=== PATIENT | female | born 1950 | race Caucasian/White ===

== ENCOUNTER → 2020-04-28 | Outpatient (CLI) | payer MEDICARE, OTHER ==
--- NOTE | 2020-04-28 10:34 | RAD ---
LEFT LEG VENOUS DOPPLER STUDY: Clinical indications: Left leg swelling and pain. Findings: Duplex sonography (including strong scale evaluation and color flow and waveform spectral charlie lysis) of the proximal aspect of the greater saphenous vein and the proximal aspect of the profunda f emoral vein and the entire length of the common femoral and superficial femoral and popliteal veins a nd the tibioperoneal trunk and the proximal aspect of the posterior tibial and peroneal veins of the left leg was performed. Normal compressibility, augmentation of color Doppler flow after calf antonino cooper, and respiratory variation of Doppler flow is seen. Thus, there are no sonographic findings of d eep venous thrombosis within these veins. Impression: There are no sonographic findings of deep venous thrombosis within the veins discussed ab ove of the left lower extremity. There is a 5.6 cm complex popliteal cyst. Electronically signed by: Daren Fontenot MD (04/28/2020 10:31 AM) [id number]
== END ==
LOC: US 09:53
PROVIDERS: ATTEND Specialist
DX: M71.22 Synovial cyst of popliteal space [Baker], left knee (principal)
CPT/HCPCS: 93971

== ENCOUNTER → 2020-05-22 | Outpatient (CLI) | payer MEDICARE, OTHER ==
--- NOTE | 2020-05-22 17:18 | RAD ---
CT HEAD/BRAIN WO Date: 05/22/2020 5:08 PM Clinical Indication: Reason: CONCUSSION WITHOUT LOSS OF CONSCIOUSNESS, FALL YESTERDAY / Spl. Instruct ions: / History: Comparison: None. Technique: 5 mm axial tomographic images were obtained of the head without contrast. These were view ed on brain and bone windows. One or more of the following dose reduction techniques were utilized: A utomated exposure control (AEC), Adjustment of mA and/or kV according to patient size, Use of iterati ve reconstruction technique such as ASiR, CT scan done according to ALARA and image gently/image vazquez ly Findings: The brain parenchyma is normal in attenuation. No intra- or extra-axial mass or fluid collection. No acute hemorrhage. The ventricles are normal in size, shape, and morphology. The strong-white matter quan ction is normal. The subarachnoid cisterns are patent. The visualized paranasal sinuses are normal. The visualized portions of the orbits and globes are no rmal. The mastoid air cells are clear. The sports marketing internship topogram shows no lytic lesion or fracture. Impression: No acute intracranial process. Electronically signed by: Rodger Carrillo MD (05/22/2020 5:16 PM) [id number]
== END ==
LOC: CT 16:47
PROVIDERS: ATTEND Specialist
DX: S06.0X0A Concussion without loss of consciousness, initial encounter (principal); X58.XXXA Exposure to other specified factors, initial encounter; Y93.89 Activity, other specified; Y92.89 Other specified places as the place of occurrence of the external cause; Y99.8 Other external cause status
CPT/HCPCS: 70450